=== PATIENT | male | born 1960 | race Caucasian/White ===

== ENCOUNTER 2021-02-10 18:07 | Emergency (ER) | payer OTHER ==
[~2021-02-10 18:07] MED LIST: FLOMAX0.4 MG PO
[2021-02-10] MEDS ORDERED: NEURONTIN300 M1 PO (20:29)
== END 2021-02-10 21:15 | disposition home or self-care (01) ==
LOC: FER 18:07
DX: G57.92 Unspecified mononeuropathy of left lower limb (principal); J44.9 Chronic obstructive pulmonary disease, unspecified
CPT/HCPCS: 99283